=== PATIENT | female | born 1940 | race Caucasian/White ===

== ENCOUNTER 2022-03-14 13:19 | Emergency (ER) | payer MEDICARE, OTHER, SELFPAY ==
[2022-03-14] VITALS (18 sets, daily range): BP systolic 127–160; BP diastolic 64–103; PULSE 69–94; RESP 20; TEMP 36.3; O2SAT 89–98
--- NOTE | 2022-03-14 13:44 | ED_ITS ---
HPI - General Adult General Time Seen by Provider: 13:44 Date Seen: 03/14/22 Chief complaint: Shortness of Breath/Dyspnea Stated complaint: Shortness of Breath Time Seen by Provider: 03/14/22 13:24 Source: patient and RN notes reviewed Mode of arrival: ambulatory Limitations: no limitations History of Present Illness HPI narrative: Wil is an 81-year-old female coming in with cough that is worsening and shortness of breath. She states that she has had 2 colds this fall, most recent 1 starting in January sometime and just has not gone away. There has been rhin orrhea with that, was much worse at the beginning. The cough was more dry but now it is becoming productive. She is feeling more short of breath with it. She does smoke a couple cigarettes daily. No history of thromboembolic disease. Does have peripheral arterial disease in does have some stenting in her lower extremities. She has noticed no increased weight or swelling of her legs. No sore throat. No fevers or night sweats. She has had no chest pain. She states her appetite is not good baseline but there is no change with it. Denies any history of prior pneumonia, no prior cardiac history, no lung disease per report. Did do a home COVID test which was negative at some point. Related Data Home Medications Medication Instructions Recorded Confirmed amlodipine 10 mg tablet 10 mg PO DAILY 03/14/22 03/14/22 atorvastatin 20 mg tablet 20 mg PO DAILY 03/14/22 03/14/22 clopidogrel 75 mg tablet 75 mg PO DAILY 03/14/22 03/14/22 Previous Rx's Medication Instructions Recorded albuterol sulfate 90 mcg/actuation 2 puff inhalation Q4-6H PRN 03/14/22 aerosol inhaler (Ventolin HFA) shortness of breath or wheezing #6.7 grams prednisone 20 mg tablet 20 mg PO DAILY #5 tabs 03/14/22 Allergies Allergy/AdvReac Type Severity Reaction Status Date / Time No Known Drug Allergies Allergy Verified 03/14/22 13:40 Review of Systems Status of ROS: Reports: 10 or more systems reviewed and unremarkable except as noted in History and below PFSH PFS Social History Smoking Status: Current every day smoker What tobacco products do you use: cigarettes Do you use any of these nicotine containing products: None Second hand tobacco smoke exposure: No How often do you have a drink containing alcohol: monthly or less AUDIT-C Alcohol total score: 1 Non-prescribed substance use: denies use Exam Const: Vital Signs, click to edit/add: Vital Signs - 24 hr 03/14/22 13:35 03/14/22 13:53 Temperature 97.4 F L Pulse Rate [Pulse Oximeter] 94 Respiratory Rate 20 Blood Pressure [Ri ght Upper Arm] 160/79 H Pulse Oximetry 95 96 Oxygen Delivery Me thod Room Air Documenting provider has reviewed patient's vital signs: yes Common normals: no apparent distress, oriented x3, no limitations, healthy appearing, alert and well nourished General appearance: cooperative, comfortable, well kempt and well developed Other: Slender frame but is certainly alert and interactive. Does have a coarse sound and cough but is not problematic. Able to speak in complete sentences. HENMT: Common normals: normocephalic, head/scalp atraumatic, hearing grossly normal bilaterally, external nose normal, nasal mucous membranes and turbinates normal, moist oral mucous membranes, oropharynx normal, dentition normal and gingiva normal Head and scalp: normocephalic and atraumatic Nose: external nose normal and nasal mucous membranes and turbinates normal Eye: Common normals: PERRL, EOMs intact bilaterally, conjunctivae normal and no scleral icterus Conjunctiva: conjunctiva(e) normal Pupil: PERRL Neck & C-Spine: Common normals: full ROM, no lymphadenopathy, supple, no meningeal signs, no JVD and thyroid normal Thyroid: thyroid normal Resp: Common normals: normal respiratory effort, no retractions, no use of accessory muscles and clear to auscultation bilaterally Auscultation: clear to auscultation bilaterally Cardio: Common normals: no JVD, regular rate, regular rhythm, S1 normal heart sound, S2 normal heart sound, no gallops, no clicks, no murmurs and no rub Rate: regular rate Rhythm: regular rhythm Heart sounds: S1 normal and S2 normal GI: Common normals: Normal to inspection, nondistended, normoactive bowel sounds present, soft to palpation, non-tender, no hepatosplenomegaly and no masses Palpation: soft and no hepatosplenomegaly Extremity: Other: Absolutely no lower extremity edema, no calf tenderness. Neuro: Common normals: oriented x3, CN's II-XII intact bilaterally, moves all extremities and no focal motor deficits Sensorium/orientation: alert Meningeal signs: no meningeal signs Psych: Appearance: well kempt Course Course Hospital Course: Will monitor on pulse oximetry, currently not hypoxic on her intake vitals. Start with a portable chest x-ray and get a full complement of labs including cardiac labs. Will also obtain an EKG. Reviewed that with the cough and shortness of breath cardiopulmonary etiologies are main consideration. Things such as congestive heart failure, pulmonary infectious etiologies including but not limited to pneumonia bronchitis, are all considerations. Thromboembolic disease also possibility, will do screening D-dimer. She is not hypoxic, not tachycardic and find this to be less likely in this scenario. Reevaluation(s) Reevaluation #1: Reviewed that she has influenza A positive. Her other labs are reassuring. Her D-dimer was mildly elevated but following age rule in knowing she is influenza positive, no hypoxia or significant tachycardia, I am highly doubtful that she has any thromboembolic disease. She really has not been feeling well this week. They wonder where she perhaps got this. She has been to the grocery store but really does not go many places. She has had her influenza vaccine for the year. We discussed Tamiflu, think she is likely out of range for this to be helpful. They agree. Her chest x-ray did demonstrate some hyperinflation and she has an extensive smoking history. I would be surprised if she does not have a component of COPD. I reviewed with them that I am not diagnosing her with this however, that requires further testing. We will trial her on some prednisone. Her relative that is with her is a nurse and feels that she would be helpful in administering albuterol, she is requesting albuterol for her to try. I think that is fine, will have pharmacy dispense a spacer with that. Her oxygenation has been excellent here, and no evidence of any hypoxia. Time: 15:51 Vital Signs Vital signs: Initial Vital Signs Temperature 97.4 F L 03/14/22 13:35 Temperature Source Temporal Artery Scan 03/14/22 13:35 Pulse Rate 94 03/14/22 13:35 Respiratory Rate 20 03/14/22 13:35 Blood Pressure 160/79 H 03/14/22 13:35 Blood Pressure Mean 106 03/14/22 13:35 Blood Pressure Position Semi-Fowlers 03/14/22 13:35 Pulse Oximetry 95 03/14/22 13:35 Oxygen Delivery Method 03/14/22 13:35 Vital Signs Temperature 97.4 F L 03/14/22 13:35 Pulse Rate 94 03/14/22 13:35 Respiratory Rate 20 03/14/22 13:35 Blood Pressure 160/79 H 03/14/22 13:35 Pulse Oximetry 95 03/14/22 13:35 Oxygen Delivery Method 03/14/22 13:35 Temperature 97.4 F L 03/14/22 13:35 Pulse Rate 94 03/14/22 13:35 Respiratory Rate 20 03/14/22 13:35 Blood Pressure 160/79 H 03/14/22 13:35 Pulse Oximetry 96 03/14/22 13:53 Oxygen Delivery Method 03/14/22 13:35 Medical Decision Making Lab Data Lab results reviewed: Yes I reviewed the patient's lab results Labs: Lab Results 03/14/22 03/14/22 03/14/22 Range/Units 13:45 13:45 14:15 WBC 9.43 (4.50-11.00) K/uL RBC 4.91 (4.00-5.20) m/uL Hgb 14.3 (12.0-16.0) gm/dL Hct 44.6 (33.0-51.0) % MCV 91 (80-100) fL MCH 29 (26-34) pg MCHC 32 (32-36) gm/dL RDW Coeff of Ani 13.5 (11.5-15.5) % Plt Count 357 (140-440) K/uL Neut % (Auto) 75.9 H (42.0-72.0) % Lymph % (Auto) 14.5 L (20-44) % Carroll % (Auto) 8.2 (0.0-11.0) % Eos % (Auto) 0.5 (0.0-7.0) % Baso % (Auto) 0.2 (0.0-3.0) % Neut # (Auto) 7.20 H (1.7-7.0) K/uL Lymph # (Auto) 1.40 (0.90-2.90) K/uL Carroll # (Auto) 0.80 (0.00-0.90) K/UL Eos # (Auto) 0.05 (0.00-0.50) K/uL Baso # (Auto) 0.02 (0.00-0.30) K/uL D-Dimer Quant (PE/DVT) (0.00-0.50) ug/ml VBG pH (7.32-7.43) VBG pCO2 (40-50) mmHG VBG pO2 (25-47) mmHG VBG HCO3 (21-28) mmol/L Sodium (135-149) mmol/L Potassium (3.6-5.1) mmol/L Chloride (96-114) mmol/L Carbon Dioxide (20-32) mmol/L BUN (7-30) mg/dL Creatinine (0.5-1.5) mg/dL Estimated Creat Clear Estimated GFR ml/min Glucose (60-115) mg/dL Calcium (8.4-10.6) mg/dL Total Bilirubin (0.1-1.5) mg/dL AST (12-35) U/L ALT (4-35) U/L Alkaline Phosphatase (40-150) U/L C-Reactive Protein (0.5-1.0) mg/dL NT-Pro-B Natriuret Pep pg/mL Total Protein (6.0-8.3) g/dL Albumin (3.3-5.0) g/dL SARS-CoV-2 (PCR) Cancelled Negative SARS-CoV-2 Influenza Type A (PCR) Cancelled POSITIVE PCR FLU A A Influenza Type B (PCR) Cancelled Negative PCR FLU B RSV (PCR) Negative PCR RSV (Negative) POC Troponin I (0.01-0.04) ng/ml 03/14/22 03/14/22 03/14/22 Range/Units 14:15 14:15 14:15 WBC (4.50-11.00) K/uL RBC (4.00-5.20) m/uL Hgb (12.0-16.0) gm/dL Hct (33.0-51.0) % MCV (80-100) fL MCH (26-34) pg MCHC (32-36) gm/dL RDW Coeff of Ani (11.5-15.5) % Plt Count (140-440) K/uL Neut % (Auto) (42.0-72.0) % Lymph % (Auto) (20-44) % Carroll % (Auto) (0.0-11.0) % Eos % (Auto) (0.0-7.0) % Baso % (Auto) (0.0-3.0) % Neut # (Auto) (1.7-7.0) K/uL Lymph # (Auto) (0.90-2.90) K/uL Carroll # (Auto) (0.00-0.90) K/UL Eos # (Auto) (0.00-0.50) K/uL Baso # (Auto) (0.00-0.30) K/uL D-Dimer Quant (PE/DVT) 0.66 H (0.00-0.50) ug/ml VBG pH (7.32-7.43) VBG pCO2 (40-50) mmHG VBG pO2 (25-47) mmHG VBG HCO3 (21-28) mmol/L Sodium 141 (135-149) mmol/L Potassium 4.3 (3.6-5.1) mmol/L Chloride 107 (96-114) mmol/L Carbon Dioxide 25 (20-32) mmol/L BUN 15 (7-30) mg/dL Creatinine 0.8 (0.5-1.5) mg/dL Estimated Creat Clear 35.10 Estimated GFR 74 ml/min Glucose 90 (60-115) mg/dL Calcium 9.9 (8.4-10.6) mg/dL Total Bilirubin 0.5 (0.1-1.5) mg/dL AST 29 (12-35) U/L ALT 19 (4-35) U/L Alkaline Phosphatase 85 (40-150) U/L C-Reactive Protein < 0.5 L (0.5-1.0) mg/dL NT-Pro-B Natriuret Pep 93 pg/mL Total Protein 8.0 (6.0-8.3) g/dL Albumin 5.0 (3.3-5.0) g/dL SARS-CoV-2 (PCR) Influenza Type A (PCR) Influenza Type B (PCR) RSV (PCR) (Negative) POC Troponin I 0.00 L (0.01-0.04) ng/ml 03/14/22 Range/Units 14:15 WBC (4.50-11.00) K/uL RBC (4.00-5.20) m/uL Hgb (12.0-16.0) gm/dL Hct (33.0-51.0) % MCV (80-100) fL MCH (26-34) pg MCHC (32-36) gm/dL RDW Coeff of Ani (11.5-15.5) % Plt Count (140-440) K/uL Neut % (Auto) (42.0-72.0) % Lymph % (Auto) (20-44) % Carroll % (Auto) (0.0-11.0) % Eos % (Auto) (0.0-7.0) % Baso % (Auto) (0.0-3.0) % Neut # (Auto) (1.7-7.0) K/uL Lymph # (Auto) (0.90-2.90) K/uL Carroll # (Auto) (0.00-0.90) K/UL Eos # (Auto) (0.00-0.50) K/uL Baso # (Auto) (0.00-0.30) K/uL D-Dimer Quant (PE/DVT) (0.00-0.50) ug/ml VBG pH 7.412 (7.32-7.43) VBG pCO2 43 (40-50) mmHG VBG pO2 24.2 L (25-47) mmHG VBG HCO3 28 (21-28) mmol/L Sodium (135-149) mmol/L Potassium (3.6-5.1) mmol/L Chloride (96-114) mmol/L Carbon Dioxide (20-32) mmol/L BUN (7-30) mg/dL Creatinine (0.5-1.5) mg/dL Estimated Creat Clear Estimated GFR ml/min Glucose (60-115) mg/dL Calcium (8.4-10.6) mg/dL Total Bilirubin (0.1-1.5) mg/dL AST (12-35) U/L ALT (4-35) U/L Alkaline Phosphatase (40-150) U/L C-Reactive Protein (0.5-1.0) mg/dL NT-Pro-B Natriuret Pep pg/mL Total Protein (6.0-8.3) g/dL Albumin (3.3-5.0) g/dL SARS-CoV-2 (PCR) Influenza Type A (PCR) Influenza Type B (PCR) RSV (PCR) (Negative) POC Troponin I (0.01-0.04) ng/ml Imaging Data Chest x-ray: Attestation: I have reviewed the pertinent imaging results. My impression: I see no acute infiltrate on this chest x-ray on my preliminary read. Radiologist's impression: Patient: RODRIGUE FOX Facility:?[facility] Patient ID:?[id number] Site Patient ID:?[id number]. Site :?[id number] Study:?XRay Chest Portable 1v-03/14/2022 2:05:55 PM Ordering Physician:Lupe Monterroso Final Report: Indication: Productive cough and shortness of breath Technique: Portable AP chest radiograph Comparison: None available Findings: Normal heart and mediastinum. No pulmonary opacity. Pleural spaces clear. Mild pulmonary hyperinflation. CardioMEMS device incidentally noted. No acute or aggressive osseous abnormality. Impression: 1. No evidence of pneumonia. 2. Mild pulmonary hyperinflation as could be seen in the setting of COPD. Dictated by Mohsen Whitmore MD @ 03/14/2022 2:37:13 PM (Electronic Signature) ECG Data Attestation: I personally reviewed and interpreted this ECG as follows: (Sinus rhythm, 70 beats per minute. No acute ischemia. QT corrected 423 milliseconds.) Prior ECG tracings: not available for review Critical Care Time Critical Care Time Critical Care Time: No Discharge Plan Discharge Clinical Impression: Influenza A Patient Disposition: Home, Self-Care Condition: Stable Instructions: Influenza (ED), How to Use a Metered-Dose Inhaler and a Spacer (ED) Additional Instructions: Take prednisone as prescribed to help with inflammation in lungs. Hopefully this will help improve your breathing. Can try the albuterol inhaler with the spacer, 2 puffs every 4 hours as needed for wheezing/coughing/shortness of breath. If it does not feel like it is helping, you do not need to use it. Recommend follow-up this week with your primary care provider for recheck. Otherwise, if you develop fevers, have progressive difficulty breathing or shortness of breath, do recommend re-evaluation in the ER. Activity Level: Activity as Tolerated Prescriptions: New prednisone 20 mg tablet 20 mg PO DAILY Qty: 5 0RF albuterol sulfate [Ventolin HFA] 90 mcg/actuation HFA aerosol inhaler 2 puff inhalation Q4-6H PRN (Reason: shortness of breath or wheezing) Qty: 6.7 0RF Rx Instructions: dispense and use with a spacer No Action amlodipine 10 mg tablet 10 mg PO DAILY clopidogrel 75 mg tablet 75 mg PO DAILY atorvastatin 20 mg tablet 20 mg PO DAILY Stand Alone Forms: [employer] Info Instructions
--- NOTE | 2022-03-14 13:53 | CRLHL7_ITS ---
For Patients: As a result of the Century Cures Act, medical imaging exams and procedure reports are released immediately into your electronic medical record. You may view this report before your referring provider. If you have questions, please contact your health care provider. Indication: Productive cough and shortness of breath Technique: Portable AP chest radiograph Comparison: None available Findings: Normal heart and mediastinum. No pulmonary opacity. Pleural spaces clear. Mild pulmonary hyperinflation. CardioMEMS device incidentally noted. No acute or aggressive osseous abnormality. Impression: 1. No evidence of pneumonia. 2. Mild pulmonary hyperinflation as could be seen in the setting of COPD. Dictated by Mohsen Whitmore MD @ 03/14/2022 2:37:13 PM (Electronically Signed)
[2022-03-14 14:38] LABS: PCR FLU A POSITIVE PCR FLU A (Negative); PCR FLU B Negative PCR FLU B (Negative); PCR RSV Negative PCR RSV (Negative); SARS PCR* Negative SARS-CoV-2 (Negative)
[2022-03-14 14:52] LABS: Basophils Absolute Auto 0.02 K/uL (0.00-0.30); Basophils Percent Auto 0.2 % (0.0-3.0); Eosinophils Absolute Auto 0.05 K/uL (0.00-0.50); Eosinophils Percent Auto 0.5 % (0.0-7.0); Hematocrit 44.6 % (33.0-51.0); Hemoglobin* 14.3 gm/dL (12.0-16.0); Immature Granulocytes Abs Auto 0.07 K/uL (0.00-0.30); Immature Granulocytes Pct Auto 0.7 %; Lymphocytes Percent Auto 14.5 % (20-44); Mean Corpuscular HGB Conc 32 gm/dL (32-36); Mean Corpuscular Hemoglobin 29 pg (26-34); Mean Corpuscular Volume 91 fL (80-100); Monocytes Percent Auto 8.2 % (0.0-11.0); Neutrophils Percent Auto 75.9 % (42.0-72.0); Platelet Count* 357 K/uL (140-440); RDW Coefficient of Variation % 13.5 % (11.5-15.5); Red Blood Count 4.91 m/uL (4.00-5.20); White Blood Count* 9.43 K/uL (4.50-11.00)
[2022-03-14 14:54] LABS: HCO3 VBG 28 mmol/L (21-28); PCO2 VBG 43 mmHG (40-50); PO2 VBG 24.2 mmHG (25-47); pH VBG 7.412 (7.32-7.43)
[2022-03-14 14:56] LABS: Slide Review Reflex No
[2022-03-14 15:16] LABS: Chloride* 107 mmol/L (96-114); Sodium* 141 mmol/L (135-149)
[2022-03-14 15:17] LABS: Potassium* 4.3 mmol/L (3.6-5.1)
[2022-03-14 15:19] LABS: Alanine Aminotransferase* 19 U/L (4-35); Alkaline Phosphatase* 85 U/L (40-150); Aspartate Amino Transferase* 29 U/L (12-35); Bilirubin Total* 0.5 mg/dL (0.1-1.5); Carbon Dioxide* 25 mmol/L (20-32); Creatinine* 0.8 mg/dL (0.5-1.5); D Dimer Quantitative* 0.66 ug/ml (0.00-0.50); Estimated Glomerular Filt Rate 74 ml/min
[2022-03-14 15:20] LABS: Blood Urea Nitrogen* 15 mg/dL (7-30); Calcium* 9.9 mg/dL (8.4-10.6); Glucose* 90 mg/dL (60-115)
[2022-03-14 15:22] LABS: C Reactive Protein* < 0.5 mg/dL (0.5-1.0)
[2022-03-14 15:37] LABS: NT Pro B Type NatriureticPept* 93 pg/mL
== END 2022-03-14 16:15 | disposition home or self-care (01) ==
PROVIDERS: Emergency Provider Family Medicine; PCP Nurse Practitioner Family
DX: J09.X2 Influenza due to identified novel influenza A virus with other respiratory manifestations (principal)
CPT/HCPCS: 36415; 71045; 80053; 82803; 83880; 84484; 85025; 85379; 86140; 87502; 87631; 87634; 87635; 93005; 99284